=== PATIENT | female | born 1965 | race Caucasian/White ===

== ENCOUNTER 2023-02-24 20:09 | Emergency (ER) | payer OTHER ==
[~2023-02-24] VITALS: Ht 152.4 cm; Wt 54.4 kg
[2023-02-24 21:59] LABS: HEMOGLOBIN 13.8 g/dL (12.0-15.00); MEAN CORPUSCULAR HEMOGLOBIN 30.1 pg (27.00-32.0); MEAN CORPUSCULAR HGB CONC 34.6 g/dl (32.0-36.0); PLATELET COUNT 337 K/uL (150-450); RED BLOOD COUNT 4.59 M/uL (4.00-6.00); RED CELL DISTRIBUTION WIDTH 13.3 % (11.5-14.5)
== END 2023-02-24 23:02 | disposition home or self-care (01) ==
LOC: ER 20:10
PROVIDERS: General Practice
DX: J06.9 Acute upper respiratory infection, unspecified (principal); Z20.822 Contact with and (suspected) exposure to COVID-19

== ENCOUNTER 2023-03-04 13:34 | Emergency (ER) | payer OTHER ==
[~2023-03-04] VITALS: Ht 152.4 cm; Wt 54.4 kg
[2023-03-04] MEDS ORDERED: BUDESONIDE0.5 MG/21 IH (18:21)
[2023-03-04] MEDS ORDERED: TUSSIN DM SYRU118 ML PO (18:23)
[2023-03-04] MEDS ORDERED: IPRATROPIU0.2 MG/1 M IH ×2 (18:24→18:29)
[2023-03-04] MEDS ORDERED: VISTARIL25 MG PO (18:29)
[2023-03-04] MEDS ORDERED: QC TUSSIN DM L118 ML PO (18:29)
== END 2023-03-04 19:14 | disposition home or self-care (01) ==
LOC: ER 13:35
DX: F41.9 Anxiety disorder, unspecified (principal); R05.9 Cough, unspecified